=== PATIENT | female | born 1965 | race Caucasian/White ===

== ENCOUNTER 2023-07-30 06:27 | Day surgery (SDC) | payer BC, OTHER ==
[2023-07-30] MEDS ORDERED: Dextrose 5%-0.45% NaCl 1,000 ML IV SCH (07:00)
[2023-07-30] MEDS ORDERED: fentaNYL 100 MCG/2 ML SDV ONE (07:43)
[2023-07-30] MEDS ORDERED: Midazolam 1 MG/ML 2 ML SDV ONE (07:43)
[2023-07-30] MEDS ORDERED: fentaNYL 100 MCG/2 ML SDV IV ONE ×2 (07:48→07:49)
[2023-07-30] MEDS ORDERED: Midazolam 1 MG/ML 2 ML SDV IV ONE ×6 (07:49→07:58)
== END 2023-07-30 09:33 | disposition home or self-care (01) ==
LOC: DL.ENDO 06:27
PROVIDERS: ATTEND Internal Medicine Gastroenterology
DX: K57.30 Diverticulosis of large intestine without perforation or abscess without bleeding (principal); E78.5 Hyperlipidemia, unspecified
CPT/HCPCS: J2250; J3010; J7042